=== PATIENT | male | born 1950 ===

== ENCOUNTER 2023-07-24 12:48 | Day surgery (SDC) | payer OTHER ==
[~2023-07-24] VITALS: Ht 193 cm; Wt 95.4 kg
[~2023-07-24 12:48] MED LIST: Lactated Ringer's 1,000 ML IV ONE; propofoL 50 ML IV ONE
[2023-07-24] MEDS ORDERED: Aspir 8181 MG (13:06)
[2023-07-24] MEDS ORDERED: ATOR20 (13:06)
[2023-07-24] MEDS ORDERED: Amlodipine Bes2.5 MG (13:06)
[2023-07-24] MEDS ORDERED: THERA-D2000 UNIT (13:07)
[2023-07-24] MEDS ORDERED: DICLOFENAC SOD100 GM (13:07)
[2023-07-24] MEDS ORDERED: DESONIDE15 G1 (13:07)
[2023-07-24] MEDS ORDERED: CALCIPOTRIENE60 G3 (13:07)
[2023-07-24] MEDS ORDERED: METF500 (13:08)
[2023-07-24] MEDS ORDERED: COSOPT EYE DROP10 ML (13:08)
[2023-07-24] MEDS ORDERED: CARAC30 G2 (13:08)
[2023-07-24] MEDS ORDERED: LISI20 (13:08)
[2023-07-24] MEDS ORDERED: SILDENAFIL CIT100 MG (13:09)
[2023-07-24] MEDS ORDERED: Lactated Ringer's 1,000 ML IV ONE (13:43)
== END 2023-07-24 16:38 | disposition home or self-care (01) ==
LOC: ORSCSDS 12:48
PROVIDERS: Internal Medicine Gastroenterology
PROC: 0DB58ZX Excision of Esophagus, Via Natural or Artificial Opening Endoscopic, Diagnostic (ICD-10-PCS; principal; 2023-07-24 14:00)
PROC: 0DJD8ZZ Inspection of Lower Intestinal Tract, Via Natural or Artificial Opening Endoscopic (ICD-10-PCS; principal; 2023-07-24 14:00)
DX: K22.70 Barrett's esophagus without dysplasia (principal); Z12.11 Encounter for screening for malignant neoplasm of colon; Z85.038 Personal history of other malignant neoplasm of large intestine; Z86.010 Personal history of colon polyps; K57.30 Diverticulosis of large intestine without perforation or abscess without bleeding; K74.60 Unspecified cirrhosis of liver; Z87.898 Personal history of other specified conditions; I10 Essential (primary) hypertension; E78.5 Hyperlipidemia, unspecified; Z79.84 Long term (current) use of oral hypoglycemic drugs; G47.33 Obstructive sleep apnea (adult) (pediatric); Z79.899 Other long term (current) drug therapy
CPT/HCPCS: 82947; 88305; J2704; J7120

== ENCOUNTER 2024-05-21 12:57 | Day surgery (SDC) | payer OTHER ==
[~2024-05-21] VITALS: Ht 193 cm; Wt 97.8 kg
[~2024-05-21 12:57] MED LIST changes: +AMLO5 PO; +ATOR20 PO; +Amlodipine Bes2.5 MG; +Aspir 8181 MG PO; +Balanced Salt Epinephrine Irrigation Solution 500 mL IR SCH; +CALCIPOTRIENE60 G3; +CARAC30 G2; +COSOPT EYE DROP10 ML BOTHEYES; +DESONIDE15 G1; +DICLOFENAC SOD100 GM; +Diazepam 5 MG Tab PO PRN; +Diazepam 5 MG Tab PO SCH; +LATA.005SO LEFTEYE; +LISI20 PO; -Lactated Ringer's 1,000 ML IV ONE; +Lidocaine HCl/Pf 1% 5 ML VIAL XX SCH; +METF500 PO; +Moxifloxacin HCL 0.5 MG/0.1 ML 0.4MLSYR LEFTEYE SCH; +Ondansetron 4 MG SoluTab MM PRN; +PHENYLEPHRINE\\TROPICAMIDE\\TETRACAINE OPHTHALMIC DILATING SOLN LEFTEYE PRN; +Povidone-Iodine 450 DROP/30 ML Solution LEFTEYE SCH; +Povidone-Iodine 450 DROP/30 ML Solution ONE; +SILDENAFIL CIT100 MG PO; +THERA-D2000 UNIT PO; +Tetracaine HCl/Pf 0.5% Opth Soln 4 ml ONE; -propofoL 50 ML IV ONE
[2024-05-21] MEDS ORDERED: Diazepam 10 MG Tab ONE (13:19)
--- NOTE | 2024-05-21 14:01 | NUR ---
05/21/24 1401 FRANCO ISRAEL PT HR ABNORMAL DR MILLS ORDERED EKG/ IT WAS NORMAL/ OK TO PROCEED W/ PROCEDURE TODAY
--- NOTE | 2024-05-21 14:15 | NUR ---
05/21/24 1415 Claudia Rollins BP-153/72 P-57 SPO2-98% 10L BLOW BY O2
== END 2024-05-21 14:59 | disposition home or self-care (01) ==
LOC: ORSCSDS 12:57
PROVIDERS: Student in an Organized Health Care Education/Training Program
PROC: 08933ZZ Drainage of Left Anterior Chamber, Percutaneous Approach (ICD-10-PCS; principal; 2024-05-21 14:30)
PROC: 08RK3JZ Replacement of Left Lens with Synthetic Substitute, Percutaneous Approach (ICD-10-PCS; principal; 2024-05-21 14:30)
DX: H25.813 Combined forms of age-related cataract, bilateral (principal); H21.81 Floppy iris syndrome; H40.1123 Primary open-angle glaucoma, left eye, severe stage; H40.1111 Primary open-angle glaucoma, right eye, mild stage; Z87.891 Personal history of nicotine dependence; Z79.84 Long term (current) use of oral hypoglycemic drugs; Z79.899 Other long term (current) drug therapy
CPT/HCPCS: 82947; 93005; 93010; A9270; V2632

== ENCOUNTER 2024-05-27 12:06 | Day surgery (SDC) | payer OTHER ==
[~2024-05-27] VITALS: Ht 190.5 cm; Wt 96.3 kg
[~2024-05-27 12:06] MED LIST changes: -Moxifloxacin HCL 0.5 MG/0.1 ML 0.4MLSYR LEFTEYE SCH; +Moxifloxacin HCL 0.5 MG/0.1 ML 0.4MLSYR RIGHTEYE SCH; -PHENYLEPHRINE\\TROPICAMIDE\\TETRACAINE OPHTHALMIC DILATING SOLN LEFTEYE PRN; +PHENYLEPHRINE\\TROPICAMIDE\\TETRACAINE OPHTHALMIC DILATING SOLN RIGHTEYE PRN; -Povidone-Iodine 450 DROP/30 ML Solution LEFTEYE SCH; +Povidone-Iodine 450 DROP/30 ML Solution RIGHTEYE SCH
[2024-05-27] MEDS ORDERED: Diazepam 10 MG Tab ONE (12:12)
--- NOTE | 2024-05-27 12:24 | NUR ---
05/27/[address] AWARE OF PT'S IRREGULAR HEART RATE. DR. JUAREZ OK TO PROCEED WITH TODAY'S EYE SURGERY. PT DENIES ANY CHEST PAIN OR DIZZINESS.
--- NOTE | 2024-05-27 12:58 | NUR ---
05/27/24 1258 Constance Crum VITALS AT 1255 BP: 145/68 P: 49 O2: 99 10 LITERS OF BLOW BY OXYGEN
== END 2024-05-27 13:34 | disposition home or self-care (01) ==
LOC: ORSCSDS 12:06
PROVIDERS: Student in an Organized Health Care Education/Training Program
PROC: 08RJ3JZ Replacement of Right Lens with Synthetic Substitute, Percutaneous Approach (ICD-10-PCS; principal; 2024-05-27 13:30)
DX: E11.36 Type 2 diabetes mellitus with diabetic cataract (principal); H25.811 Combined forms of age-related cataract, right eye; H21.81 Floppy iris syndrome; Z96.1 Presence of intraocular lens; H40.1123 Primary open-angle glaucoma, left eye, severe stage; H40.1111 Primary open-angle glaucoma, right eye, mild stage; Z79.4 Long term (current) use of insulin; Z87.891 Personal history of nicotine dependence; Z79.899 Other long term (current) drug therapy
CPT/HCPCS: 82947; A9270; V2632